=== PATIENT | male | born 1960 | race Caucasian/White ===

== ENCOUNTER → 2023-08-14 06:36 | Outpatient (REF) | payer BC, SELFPAY ==
[2023-08-14 07:48] LABS: % Basophils 0.9 % (0-2); % Eosinophils 2.8 % (0-6); % Immature Granulocytes 0.5 % (0-0.5); % Lymphocytes 31.6 % (20.5-51.1); % Monocytes 7.2 % (1.7-9.3); Absolute Basophils 0.1 10^3/uL (0-0.2); Absolute Eosinophils 0.2 10^3/uL (0-0.7); Absolute Lymphocytes 2.1 10^3/uL (1.2-3.4); Absolute Monocytes 0.5 10^3/uL (0.1-0.6); Absolute Neutrophils 3.7 10^3/uL (1.4-6.5); Hematocrit 39.8 % (39.0-52.0); Hemoglobin 13.3 g/dL (13.0-18.0); Mean Corp Hgb Conc. 33.4 g/dL (33.0-37.0); Mean Corpuscular Hgb 28.7 pg (27.0-31.0); Mean Platelet Volume 9.4 fL (7.4-10.4); Nucleated Red Blood Cells % 0 % (-); Platelet Count 289 10^3/uL (130-400); Red Blood Cell Count 4.63 10^6/uL (4.70-6.10); Red Cell Dist. Width 12.6 % (11.5-14.5); White Blood Cell Count 6.5 10^3/uL (4.8-10.8)
[2023-08-14 07:51] LABS: Urine Albumin Negative (Neg - Trace); Urine Bilirubin Negative (Negative); Urine Character Clear (Clear); Urine Color Yellow; Urine Glucose 1+ (Negative); Urine Ketone Negative (Negative); Urine Leukocyte Negative (Negative); Urine Nitrite Negative (Negative); Urine Occult Blood Negative (Negative); Urine Urobilinogen Negative (Neg - 1+)
[2023-08-14 08:18] LABS: ALT (SGPT) 31 U/L (0-50); AST (SGOT) 21 U/L (17-59); Albumin 4.2 g/dl (3.5-5.0); Alkaline Phosphatase 46 U/L (38-126); Blood Urea Nitrogen 18 mg/dl (9-20); Carbon Dioxide 27 mmol/L (22-30); Chloride 106 mmol/L (98-107); Glucose 169 mg/dl (70-99); HDL Cholesterol 55 mg/dl; LDL Cholesterol, Calculated 88 mg/dl; Sodium 143 mmol/L (135-145); Total Bilirubin 0.6 mg/dl (0.2-1.3); Total Cholesterol 162 mg/dl (50-199); Total Protein 6.9 g/dl (6.3-8.2); Triglyceride 95 mg/dl (10-149); Very Low Density Lipoprotein 19 mg/dl (0-30); eGFR > 60.00
[2023-08-14 08:33] LABS: Luteinizing Hormone 2.15 mIU/ml (1.24-7.80); Prolactin 3.8 ng/ml (3.7-17.9)
[2023-08-14 08:48] LABS: TSH 1.76 uIU/ml (0.47-4.68)
[2023-08-14 08:52] LABS: Cortisol, Random 4.9 ug/dl
[2023-08-14 10:16] LABS: Vitamin D, 25-OH*** 89.1 ng/mL (30-80)
[2023-08-14 12:49] LABS: Glycohemoglobin (HgbA1c) 7.2 % (4.0-5.6)
[2023-08-15 14:18] LABS: Free Testosterone 42 pg/mL (47-244); Sex Hormone Binding Globulin 25 nmol/L (19-76); Total Testosterone 209 ng/dL (300-720)
== END ==
LOC: REG 06:36
PROVIDERS: ATTENDING PHYSICIAN Internal Medicine Endocrinology, Diabetes & Metabolism; FAMILY PHYSICIAN Internal Medicine Geriatric Medicine
DX: I10 Essential (primary) hypertension (principal); E11.9 Type 2 diabetes mellitus without complications; K21.9 Gastro-esophageal reflux disease without esophagitis; E78.2 Mixed hyperlipidemia; E11.65 Type 2 diabetes mellitus with hyperglycemia
CPT/HCPCS: 36415; 80053; 80061; 81003; 82306; 82533; 83001; 83002; 83036; 83835; 84146; 84270; 84402; 84403; 84443; 85025

== ENCOUNTER → 2023-12-01 11:21 | Outpatient (REF) | payer BC, SELFPAY ==
[2023-12-01 13:02] LABS: Microalbumin, Random Urine 0.7 mg/dl (0.6-1.7); Microalbumin/creatinine Ratio 4.6 mg/g
== END ==
LOC: REG 11:21
PROVIDERS: ATTENDING PHYSICIAN Internal Medicine Geriatric Medicine
DX: E11.9 Type 2 diabetes mellitus without complications (principal)
CPT/HCPCS: 82043; 82570

== ENCOUNTER → 2023-12-07 07:33 | Outpatient (REF) | payer BC, SELFPAY | LOC: HWRAD 07:33 | PROVIDERS: ATTENDING PHYSICIAN Internal Medicine Geriatric Medicine | DX: E11.9 Type 2 diabetes mellitus without complications (principal); I10 Essential (primary) hypertension; K21.9 Gastro-esophageal reflux disease without esophagitis; E78.2 Mixed hyperlipidemia; E11.65 Type 2 diabetes mellitus with hyperglycemia; F41.9 Anxiety disorder, unspecified; K59.09 Other constipation; M19.90 Unspecified osteoarthritis, unspecified site; E55.9 Vitamin D deficiency, unspecified; Z13.31 Encounter for screening for depression; M77.11 Lateral epicondylitis, right elbow; Z13.89 Encounter for screening for other disorder | CPT/HCPCS: 71250; 74177; Q9967 ==

== ENCOUNTER → 2023-12-29 12:00 | Outpatient (REF) | payer BC, SELFPAY | LOC: DHSLP 12:00 | PROVIDERS: ATTENDING PHYSICIAN Internal Medicine Geriatric Medicine | DX: G47.33 Obstructive sleep apnea (adult) (pediatric) (principal) | CPT/HCPCS: 95800 ==

== ENCOUNTER → 2023-12-30 07:41 | Outpatient (REF) | payer BC, SELFPAY ==
[2023-12-31 23:51] LABS: Free Testosterone 15 pg/mL (47-244); Sex Hormone Binding Globulin 24 nmol/L (19-76); Total Testosterone 77 ng/dL (300-720)
== END ==
LOC: REG 07:41
PROVIDERS: ATTENDING PHYSICIAN Specialist; FAMILY PHYSICIAN Internal Medicine Geriatric Medicine; REFERRING PHYSICIAN Internal Medicine Endocrinology, Diabetes & Metabolism
DX: E29.1 Testicular hypofunction (principal)
CPT/HCPCS: 36415; 84270; 84402; 84403

== ENCOUNTER → 2024-01-26 07:38 | Outpatient (REF) | payer BC, SELFPAY ==
[2024-01-26 09:53] LABS: Luteinizing Hormone 2.19 mIU/ml (1.24-7.80); Prolactin 4.1 ng/ml (3.7-17.9)
== END ==
LOC: REG 07:38
PROVIDERS: ATTENDING PHYSICIAN Specialist; FAMILY PHYSICIAN Internal Medicine Geriatric Medicine; REFERRING PHYSICIAN Internal Medicine Endocrinology, Diabetes & Metabolism
DX: E29.1 Testicular hypofunction (principal)
CPT/HCPCS: 36415; 83002; 84146; 84403

== ENCOUNTER → 2024-04-08 07:00 | Outpatient (REF) | payer BC, SELFPAY ==
[2024-04-08 08:06] LABS: Hematocrit 39.7 % (39.0-52.0); Hemoglobin 13.7 g/dL (13.0-18.0); Mean Corp Hgb Conc. 34.5 g/dL (33.0-37.0); Mean Corpuscular Hgb 29.2 pg (27.0-31.0); Mean Corpuscular Volume 84.6 fL (80.0-94.0); Mean Platelet Volume 9.3 fL (7.4-10.4); Platelet Count 268 10^3/uL (130-400); Red Blood Cell Count 4.69 10^6/uL (4.70-6.10); Red Cell Dist. Width 12.7 % (11.5-14.5); White Blood Cell Count 6.9 10^3/uL (4.8-10.8)
[2024-04-08 08:48] LABS: ALT (SGPT) 35 U/L (0-50); AST (SGOT) 22 U/L (17-59); Albumin 4.4 g/dl (3.5-5.0); Alkaline Phosphatase 52 U/L (38-126); Blood Urea Nitrogen 21 mg/dl (9-20); Calcium 9.3 mg/dl (8.4-10.2); Carbon Dioxide 25 mmol/L (22-30); Chloride 106 mmol/L (98-107); Glucose 150 mg/dl (70-99); Potassium 4.1 mmol/L (3.5-5.1); Sodium 142 mmol/L (135-145); Total Bilirubin 0.4 mg/dl (0.2-1.3); eGFR > 60.00
[2024-04-08 08:52] LABS: Prolactin 2.9 ng/ml (3.7-17.9)
[2024-04-08 09:06] LABS: TSH 2.87 uIU/ml (0.47-4.68)
[2024-04-09 17:43] LABS: Free Testosterone 37 pg/mL (47-244); Sex Hormone Binding Globulin 26 nmol/L (19-76); Total Testosterone 189 ng/dL (300-720)
== END ==
LOC: REG 07:00
PROVIDERS: ATTENDING PHYSICIAN Internal Medicine Endocrinology, Diabetes & Metabolism; FAMILY PHYSICIAN Internal Medicine Geriatric Medicine
DX: E29.1 Testicular hypofunction (principal); R61 Generalized hyperhidrosis
CPT/HCPCS: 36415; 80053; 84146; 84270; 84402; 84403; 84443; 85027

== ENCOUNTER → 2024-04-23 08:40 | Outpatient (REF) | payer BC, SELFPAY ==
[2024-04-23 09:56] LABS: % Eosinophils 3.9 % (0-6); % Immature Granulocytes 0.7 % (0-0.5); % Lymphocytes 31.2 % (20.5-51.1); % Monocytes 7.7 % (1.7-9.3); % Neutrophils 55.5 % (42.2-75.2); Absolute Basophils 0.1 10^3/uL (0-0.2); Absolute Eosinophils 0.2 10^3/uL (0-0.7); Absolute Lymphocytes 1.8 10^3/uL (1.2-3.4); Absolute Monocytes 0.5 10^3/uL (0.1-0.6); Absolute Neutrophils 3.3 10^3/uL (1.4-6.5); Hematocrit 42.5 % (39.0-52.0); Hemoglobin 14.5 g/dL (13.0-18.0); Mean Corp Hgb Conc. 34.1 g/dL (33.0-37.0); Mean Corpuscular Hgb 28.9 pg (27.0-31.0); Mean Corpuscular Volume 84.7 fL (80.0-94.0); Nucleated Red Blood Cells % 0 % (-); Platelet Count 290 10^3/uL (130-400); Red Blood Cell Count 5.02 10^6/uL (4.70-6.10); Red Cell Dist. Width 12.7 % (11.5-14.5); White Blood Cell Count 5.9 10^3/uL (4.8-10.8)
[2024-04-23 10:30] LABS: ALT (SGPT) 45 U/L (0-50); AST (SGOT) 27 U/L (17-59); Albumin 4.4 g/dl (3.5-5.0); Alkaline Phosphatase 53 U/L (38-126); Blood Urea Nitrogen 17 mg/dl (9-20); Calcium 9.7 mg/dl (8.4-10.2); Carbon Dioxide 30 mmol/L (22-30); Chloride 101 mmol/L (98-107); Glucose 165 mg/dl (70-99); HDL Cholesterol 54 mg/dl; LDL Cholesterol, Calculated 160 mg/dl; Potassium 4.7 mmol/L (3.5-5.1); Sodium 141 mmol/L (135-145); Total Bilirubin 0.6 mg/dl (0.2-1.3); Total Cholesterol 235 mg/dl (50-199); Total Protein 7.3 g/dl (6.3-8.2); Triglyceride 105 mg/dl (10-149); Very Low Density Lipoprotein 21 mg/dl (0-30); eGFR > 60.00
[2024-04-23 10:46] LABS: Vitamin D, 25-OH*** 43.6 ng/mL (30-80)
[2024-04-23 11:32] LABS: Glycohemoglobin (HgbA1c) 6.8 % (4.0-5.6)
[2024-04-23 12:01] LABS: Urine Albumin Trace (Neg - Trace); Urine Bilirubin Negative (Negative); Urine Character Clear (Clear); Urine Color Yellow; Urine Glucose Negative (Negative); Urine Ketone Negative (Negative); Urine Leukocyte Negative (Negative); Urine Nitrite Negative (Negative); Urine Occult Blood Negative (Negative); Urine Urobilinogen Negative (Neg - 1+)
[2024-04-23 14:10] LABS: Erythrocyte Sed Rate 3 mm/hour (0-20)
[2024-04-26 07:58] LABS: Aldosterone, Serum 13.1 ng/dL; Aldosterone/Renin Activ Ratio 10.9 ratio (<=25.0); Renin Activity Results 1.2 ng/mL/hr
== END ==
LOC: REG 08:40
PROVIDERS: ATTENDING PHYSICIAN Internal Medicine Geriatric Medicine
DX: E11.9 Type 2 diabetes mellitus without complications (principal); I10 Essential (primary) hypertension; K21.9 Gastro-esophageal reflux disease without esophagitis; E78.2 Mixed hyperlipidemia; E11.65 Type 2 diabetes mellitus with hyperglycemia; F41.9 Anxiety disorder, unspecified; K59.09 Other constipation; M19.90 Unspecified osteoarthritis, unspecified site; E55.9 Vitamin D deficiency, unspecified; Z13.31 Encounter for screening for depression; Z13.89 Encounter for screening for other disorder
CPT/HCPCS: 36415; 80053; 80061; 81003; 82088; 82306; 83036; 83835; 84244; 85025; 85652

== ENCOUNTER → 2024-08-02 06:32 | Outpatient (REF) | payer BC, SELFPAY ==
[2024-08-02 07:31] LABS: % Basophils 0.7 % (0-2); % Eosinophils 2.5 % (0-6); % Immature Granulocytes 0.4 % (0-0.5); % Lymphocytes 34.1 % (20.5-51.1); % Monocytes 7.7 % (1.7-9.3); % Neutrophils 54.6 % (42.2-75.2); Absolute Basophils 0.1 10^3/uL (0-0.2); Absolute Eosinophils 0.2 10^3/uL (0-0.7); Absolute Lymphocytes 2.3 10^3/uL (1.2-3.4); Absolute Monocytes 0.5 10^3/uL (0.1-0.6); Absolute Neutrophils 3.7 10^3/uL (1.4-6.5); Hemoglobin 13.7 g/dL (13.0-18.0); Mean Corp Hgb Conc. 35.1 g/dL (33.0-37.0); Mean Corpuscular Hgb 29.2 pg (27.0-31.0); Mean Corpuscular Volume 83.2 fL (80.0-94.0); Mean Platelet Volume 9.9 fL (7.4-10.4); Nucleated Red Blood Cells % 0 % (-); Platelet Count 244 10^3/uL (130-400); Red Blood Cell Count 4.69 10^6/uL (4.70-6.10); Red Cell Dist. Width 12.5 % (11.5-14.5); White Blood Cell Count 6.7 10^3/uL (4.8-10.8)
[2024-08-02 08:14] LABS: ALT (SGPT) 31 U/L (0-50); AST (SGOT) 21 U/L (17-59); Albumin 4.6 g/dl (3.5-5.0); Alkaline Phosphatase 41 U/L (38-126); Blood Urea Nitrogen 17 mg/dl (9-20); Calcium 9.4 mg/dl (8.4-10.2); Carbon Dioxide 26 mmol/L (22-30); Chloride 107 mmol/L (98-107); Glucose 121 mg/dl (70-99); HDL Cholesterol 52 mg/dl; LDL Cholesterol, Calculated 77 mg/dl; Potassium 3.8 mmol/L (3.5-5.1); Sodium 143 mmol/L (135-145); Total Bilirubin 0.8 mg/dl (0.2-1.3); Total Cholesterol 147 mg/dl (50-199); Triglyceride 93 mg/dl (10-149); Very Low Density Lipoprotein 18 mg/dl (0-30); eGFR > 60.00
[2024-08-02 08:16] LABS: Luteinizing Hormone 1.48 mIU/ml (1.24-7.80); Prolactin 2.7 ng/ml (3.7-17.9); Vitamin D, 25-OH*** 44.1 ng/mL (30-80)
[2024-08-02 08:29] LABS: PSA, Total - Diagnostic 1.03 ng/ml (0.0-4.0)
[2024-08-02 08:31] LABS: Cortisol, Random 10.9 ug/dl
[2024-08-02 12:59] LABS: Glycohemoglobin (HgbA1c) 6.9 % (4.0-5.6)
[2024-08-03 21:30] LABS: Adrenocorticotropic Hormone 5.8 pg/mL (7.2-63.3)
[2024-08-04 00:38] LABS: C-Peptide 1.7 ng/mL (0.5-3.3)
[2024-08-04 05:20] LABS: % Free Testosterone 2.1 % (1.6-2.9); Free Testosterone 31 pg/mL (47-244); Sex Hormone Binding Globulin 22 nmol/L (19-76); Total Testosterone 147 ng/dL (300-720)
== END ==
LOC: REG 06:32
PROVIDERS: ATTENDING PHYSICIAN Specialist; FAMILY PHYSICIAN Internal Medicine Geriatric Medicine; OTHER PHYSICIAN Internal Medicine Endocrinology, Diabetes & Metabolism
DX: N40.0 Benign prostatic hyperplasia without lower urinary tract symptoms (principal); E27.8 Other specified disorders of adrenal gland; I10 Essential (primary) hypertension; K21.9 Gastro-esophageal reflux disease without esophagitis; E11.65 Type 2 diabetes mellitus with hyperglycemia; E78.2 Mixed hyperlipidemia; F41.9 Anxiety disorder, unspecified; K59.09 Other constipation; M19.90 Unspecified osteoarthritis, unspecified site; E55.9 Vitamin D deficiency, unspecified; Z13.31 Encounter for screening for depression
CPT/HCPCS: 36415; 80053; 80061; 82024; 82306; 82533; 83001; 83002; 83036; 83835; 84146; 84153; 84270; 84402; 84403; 84681; 85025

== ENCOUNTER → 2024-08-03 09:54 | Outpatient (REF) | payer BC, SELFPAY | LOC: REG 09:54 | PROVIDERS: ATTENDING PHYSICIAN Internal Medicine Endocrinology, Diabetes & Metabolism; FAMILY PHYSICIAN Internal Medicine Geriatric Medicine | DX: E27.8 Other specified disorders of adrenal gland (principal) | CPT/HCPCS: 81050; 82530 ==

== ENCOUNTER → 2024-12-05 10:10 | Outpatient (REF) | payer BC, SELFPAY ==
[2024-12-05 11:19] LABS: Microalb - Urine Creatinine 91.900 mg/dl
[2024-12-05 11:28] LABS: Microalbumin, Random Urine <0.6 mg/dl (0.6-1.7)
[2024-12-05 11:30] LABS: Glycohemoglobin (HgbA1c) 6.6 % (4.0-5.6)
[2024-12-05 11:33] LABS: ALT (SGPT) 38 U/L (0-50); AST (SGOT) 24 U/L (17-59); Albumin 4.5 g/dl (3.5-5.0); Alkaline Phosphatase 48 U/L (38-126); Blood Urea Nitrogen 17 mg/dl (9-20); Calcium 9.5 mg/dl (8.4-10.2); Carbon Dioxide 26 mmol/L (22-30); Chloride 105 mmol/L (98-107); Glucose 133 mg/dl (70-99); HDL Cholesterol 59 mg/dl; LDL Cholesterol, Calculated 166 mg/dl; Potassium 4.3 mmol/L (3.5-5.1); Sodium 139 mmol/L (135-145); Total Protein 7.4 g/dl (6.3-8.2); Very Low Density Lipoprotein 20 mg/dl (0-30); eGFR > 60.00
== END ==
LOC: REG 10:10
PROVIDERS: ATTENDING PHYSICIAN Internal Medicine Geriatric Medicine
DX: E11.9 Type 2 diabetes mellitus without complications (principal); E11.65 Type 2 diabetes mellitus with hyperglycemia; I10 Essential (primary) hypertension; K21.9 Gastro-esophageal reflux disease without esophagitis; E78.2 Mixed hyperlipidemia; F41.9 Anxiety disorder, unspecified; K59.09 Other constipation; M19.90 Unspecified osteoarthritis, unspecified site; E55.9 Vitamin D deficiency, unspecified; Z13.31 Encounter for screening for depression
CPT/HCPCS: 36415; 80053; 80061; 82043; 82570; 83036

== ENCOUNTER 2025-02-27 06:11 | Day surgery (SDC) | payer BC, SELFPAY ==
[2025-02-27 08:28] LABS: Glucose - Point of Care 183 mg/dl (70-99)
== END 2025-02-27 09:53 | disposition home or self-care (01) ==
LOC: GI 06:11
PROVIDERS: ATTENDING PHYSICIAN Specialist; FAMILY PHYSICIAN Internal Medicine Geriatric Medicine
DX: Z12.11 Encounter for screening for malignant neoplasm of colon (principal); K62.5 Hemorrhage of anus and rectum; Z86.0101 Personal history of adenomatous and serrated colon polyps; K62.89 Other specified diseases of anus and rectum; K64.8 Other hemorrhoids; K63.5 Polyp of colon
CPT/HCPCS: 45380; 82962; 88305